=== PATIENT | female | born 1975 | race Caucasian/White ===

== ENCOUNTER 2024-01-30 12:13 | Emergency (ER) | payer OTHER ==
[~2024-01-30] VITALS: Ht 152.4 cm; Wt 60.0 kg
[2024-01-30 12:17] VITALS: BP 201/93; PULSE 84; RESP 20; TEMP 98.2; O2SAT 100
[2024-01-30] MEDS: TETANUS, DIPHTHERIA, PERTUSSIS VAC/PF 0.5ML (>10YR OLD) IM ONE (13:33)
== END 2024-01-30 13:39 | disposition home or self-care (01) ==
LOC: ER 12:13
DX: S01.112A Laceration without foreign body of left eyelid and periocular area, initial encounter (principal); X58.XXXA Exposure to other specified factors, initial encounter; Y93.89 Activity, other specified; Y92.89 Other specified places as the place of occurrence of the external cause; Y99.8 Other external cause status
CPT/HCPCS: 12011; 90471; 90715; 99283